=== PATIENT | female | born 1965 | race Caucasian/White ===

== ENCOUNTER 2018-09-21 16:43 | Outpatient (CLI) | payer BC ==
--- NOTE | 2018-09-21 16:57 | RAD ---
XR Chest Pa Lat STANDARD HISTORY: Cardiomyopathy COMPARISON: 08/30/2018 FINDINGS: The heart size is moderately enlarged. The aorta is tortuous. The lungs are well expanded w ithout lobar consolidation, pneumothoraces, arnold pulmonary edema or pleural effusions. IMPRESSION: No radiographic evidence of acute cardiopulmonary process.
[2018-09-21 17:12] LABS: #Basophils 0.1 thou/uL (0.0-0.2); #Eosinphils 0.5 thou/uL (0.0-0.7); #Monocytes 0.6 thou/uL (0.11-0.59); #Neutrophils 7.9 thou/uL (1.40-6.50); %Basophils 0.8 % (0.0-1.0); %Eosinophils 3.8 % (0.0-10.0); %Lymphocytes 24.9 % (21.0-51.0); %Monocytes 4.9 % (0.0-10.0); %Neutrophils 65.6 % (42.0-75.0); Hemoglobin 13.6 g/dL (12.0-16.0); Mean Corpuscular HGB CONC 32.3 g/dL (32.0-36.0); Mean Corpuscular Hemoglobin 28.3 pg (27.0-31.0); Mean Corpuscular Volume 87.7 fL (78.0-98.0); Mean Platelet Volume 6.5 fL (7.4-10.4); Platelet Count 436 thou/uL (130-400); RBC Distribution Width 14.3 % (11.5-14.5); Red Blood Cell (RBC) Count 4.79 mill/uL (4.20-5.40)
[2018-09-21 17:24] LABS: Anion Gap 17 mmol/L (10-20); BUN (Urea Nitrogen) 7 mg/dL (9.8-20.1); Calc. Creatinine Clearance 0 mL/min (70-130); Carbon Dioxide 23 mmol/L (22-29); Chloride 104 mmol/L (98-107); Estimated GFR-MDRD 87; Glucose 125 mg/dL (70-105); Sodium 139 mmol/L (136-145)
== END 2018-09-21 16:44 | disposition home or self-care (01) ==
LOC: MADLABBHPM 16:43
PROVIDERS: ATTEND Family Medicine
DX: I42.9 Cardiomyopathy, unspecified (principal)
CPT/HCPCS: 36415; 71046; 80048; 83880; 85025

== ENCOUNTER 2018-09-28 01:52 | Emergency (ER) | payer BC ==
[2018-09-28 02:51] LABS: #Basophils 0.1 thou/uL (0.0-0.2); #Eosinphils 0.2 thou/uL (0.0-0.7); #Lymphocytes 3.4 thou/uL (1.20-3.40); #Monocytes 0.8 thou/uL (0.11-0.59); #Neutrophils 9.2 thou/uL (1.40-6.50); %Eosinophils 1.5 % (0.0-10.0); %Lymphocytes 24.6 % (21.0-51.0); %Monocytes 5.8 % (0.0-10.0); %Neutrophils 67.1 % (42.0-75.0); Mean Corpuscular HGB CONC 32.7 g/dL (32.0-36.0); Mean Corpuscular Hemoglobin 28.3 pg (27.0-31.0); Mean Corpuscular Volume 86.6 fL (78.0-98.0); Mean Platelet Volume 6.9 fL (7.4-10.4); Platelet Count 395 thou/uL (130-400); RBC Distribution Width 14.5 % (11.5-14.5); Red Blood Cell (RBC) Count 4.95 mill/uL (4.20-5.40); White Blood Cell (WBC) Count 13.7 thou/uL (4.8-10.8)
[2018-09-28 03:02] LABS: ALT (SGPT) 12 U/L (8-55); AST (SGOT) 12 U/L (5-34); Albumin 3.8 g/dL (3.5-5.0); Alkaline Phosphatase 79 U/L (40-150); Anion Gap 17 mmol/L (10-20); BUN (Urea Nitrogen) 8 mg/dL (9.8-20.1); Bilirubin, Total 0.2 mg/dL (0.2-1.2); Calc. Creatinine Clearance 0 mL/min (70-130); Carbon Dioxide 21 mmol/L (22-29); Chloride 101 mmol/L (98-107); Estimated GFR-MDRD 88; Glucose 243 mg/dL (70-105); Potassium 4.5 mmol/L (3.5-5.1); Sodium 134 mmol/L (136-145)
[2018-09-28 03:05] LABS: CKMB 0.6 ng/mL (0-6.6); Calcium 9.1 mg/dL (7.8-10.44); Protein, Total 6.8 g/dL (6.0-8.3)
--- NOTE | 2018-09-28 06:23 | CT ---
CTA THORAX WITH IV CONTRAST AND 3D REFORMATTED IMAGING AND PE PROTOCOL: HISTORY: A 52-year-old female with reported malaise, not feeling well, and a high elevated D-dimer. The physi sal is concerned for possible PE. COMPARISON: None. FINDINGS: Respiratory motion artifact slightly limits image detail of the lung bases of the segmental pulmonary vasculature. No definite central or segmental pulmonary embolus is grossly evident within the limitations of the e xam. There are slightly prominent lymph nodes seen within the hilar regions on the right, Within the infr ahilar region, there is a 1.5 cm lymph node. Within the left hilum, there is a 1.1 cm lymph node. T here are a few shotty appearing prevascular lymph nodes, measuring up to 7 mm. There are calcificati ons involving the thoracic aorta and coronary arteries. There are areas of subsegmental volume loss involving both lungs. There are hazy ground glass opacit ies seen within both lungs, which may be related to subsegmental volume loss or a mild pneumonitis. The visualized upper abdomen demonstrates fatty infiltration of the liver. The remaining visualized segments of the upper abdomen are unremarkable appearing. There is scattered degenerative and osteoarthritic change. No definite acute osseous abnormality is evident. IMPRESSION: 1. No central or segmental pulmonary embolus. 2. Hazy ground glass opacity seen throughout both lungs can be related to peripheral airways disease and subsegmental volume loss. This can also be seen with a mild pneumonitis. This can be related t o an atypical infectious process such as viral pneumonia. 3. Mild prominence of the hilar lymph nodes. As a conservative measure, follow-up CT examination in six to eight weeks may be helpful to document resolution of the above findings. POS: [facility]
--- NOTE | 2018-09-28 08:15 | RAD ---
CHEST ONE VIEW: HISTORY: Dizziness. Lightheadedness. COMPARISON: Radiograph from 09/21/2018. FINDINGS: The lungs are clear. No pneumothorax. No effusion. The cardiac silhouette and mediastinal contour are within normal limits. IMPRESSION: No acute intrathoracic abnormality. POS: CET
[2018-09-28] MEDS ORDERED: Iopamidol 370 76% 125 ML VIAL FS ONE (09:40)
== END 2018-09-28 06:53 | disposition short-term general hospital (02) ==
LOC: MADERS 01:52
DX: R00.2 Palpitations (principal); R55 Syncope and collapse; J45.909 Unspecified asthma, uncomplicated
CPT/HCPCS: 71045; 71275; 80053; 82553; 83880; 84484; 85025; 85379; 93005; Q9967

== ENCOUNTER 2018-10-05 01:14 | Emergency (ER) | payer BC ==
[2018-10-05 03:28] LABS: #Basophils 0.1 thou/uL (0.0-0.2); #Eosinphils 0.2 thou/uL (0.0-0.7); #Lymphocytes 3.6 thou/uL (1.20-3.40); #Monocytes 0.8 thou/uL (0.11-0.59); #Neutrophils 9.8 thou/uL (1.40-6.50); %Basophils 0.6 % (0.0-1.0); %Eosinophils 1.3 % (0.0-10.0); %Lymphocytes 24.9 % (21.0-51.0); %Monocytes 5.5 % (0.0-10.0); %Neutrophils 67.7 % (42.0-75.0); Hemoglobin 13.4 g/dL (12.0-16.0); Mean Corpuscular HGB CONC 33.3 g/dL (32.0-36.0); Mean Platelet Volume 7.7 fL (7.4-10.4); Platelet Count 313 thou/uL (130-400); RBC Distribution Width 14.5 % (11.5-14.5); Red Blood Cell (RBC) Count 4.63 mill/uL (4.20-5.40); White Blood Cell (WBC) Count 14.4 thou/uL (4.8-10.8)
[2018-10-05 03:47] LABS: ALT (SGPT) 21 U/L (8-55); AST (SGOT) 13 U/L (5-34); Alkaline Phosphatase 72 U/L (40-150); Anion Gap 16 mmol/L (10-20); BUN (Urea Nitrogen) 6 mg/dL (9.8-20.1); Bilirubin, Total 0.3 mg/dL (0.2-1.2); CK (CPK) 26 U/L (29-168); Calc. Creatinine Clearance 0 mL/min (70-130); Calcium 9.6 mg/dL (7.8-10.44); Carbon Dioxide 24 mmol/L (22-29); Chloride 104 mmol/L (98-107); Estimated GFR-MDRD Greater than 90; Globulin 3.4 g/dL (2.4-3.5); Glucose 109 mg/dL (70-105); Lipase 39 U/L (8-78); Potassium 3.5 mmol/L (3.5-5.1); Protein, Total 7.4 g/dL (6.0-8.3); Sodium 140 mmol/L (136-145)
[2018-10-05] MEDS ORDERED: Lorazepam 2 MG/ML VIAL ONE (03:49)
[2018-10-05] MEDS ORDERED: Ketorolac Tromethamine 30 MG/ML VIAL ONE (03:50)
[2018-10-05] MEDS ORDERED: Ondansetron ODT 4 MG TAB ONE ×2 (03:50→15:31)
--- NOTE | 2018-10-05 08:08 | RAD ---
RADIOGRAPH CHEST 1 VIEW: DATE: 10/05/2018 HISTORY: 52-year-old female with right-sided chest pain FINDINGS: There is no airspace density, pulmonary edema, or pneumothorax. The lateral costophrenic angles are n ot effaced. IMPRESSION: No acute pulmonary findings.
--- NOTE | 2018-10-05 08:14 | CT ---
PRELIMINARY REPORT/[facility]/AFTER HOURS PROCEDURE EXAM: CT Abdomen and Pelvis Without Contrast EXAM DATE/TIME: 10/05/2018 2:49 AM CLINICAL HISTORY: 52 years old, female; Abdominal pain; Localized; Right; Patient HX: Pain to RT side of abdomen TECHNIQUE: Imaging protocol: Computed tomography images of the abdomen and pelvis without contrast. Radiation optimization: All CT scans at this facility use at least one of these dose optimization techniques: automated exposure control; mA and/or kV adjustment per patient size (includes targeted exams where dose is matched to clinical indication); or iterative reconstruction. COMPARISON: No relevant prior studies available. FINDINGS: Liver: Mild hepatomegaly. Gallbladder and bile ducts: Normal Pancreas: Normal. Spleen: Normal. Adrenals: Normal. Kidneys and ureters: Normal. Stomach and bowel: Normal. Appendix: Appendix normal. Intraperitoneal space: Normal. No free air. No significant fluid collection. Vasculature: Atherosclerotic calcification of the visualized right and left circumflex coronary arter ies. Atherosclerotic disease of the visualized distal thoracic aorta. Atherosclerotic disease of the abdominal aorta and iliac arteries. Lymph nodes: Normal. No enlarged lymph nodes. Bladder: Unremarkable as visualized. Reproductive: Uterus is surgically absent. Bones/joints: No acute abnormality. Soft tissues: Normal. IMPRESSION: No acute abdominal or pelvic abnormality. Thank you for allowing us to participate in the care of your patient. Dictated and Authenticated by: Waldemar Torres MD 10/05/2018 3:26 AM Central Time ([place] & [place]) FINAL REPORT EMERGENCY AFTER HOURS STUDY CT ABDOMEN NONCONTRAST CT PELVIS NONCONTRAST: (Urolithiasis protocol) DATE: 10/05/2018 HISTORY: A 52-year-old female with right-sided abdominal pain. TECHNIQUE: IV injection of iodinated contrast media: None. Oral contrast media: None. FINDINGS: Other than for urolithiasis, the lack of IV and oral contrast limits the evaluation. Liver: No contour abnormalities. Spleen: No splenomegaly. Pancreas: No contour abnormalities. Adrenals: No mass. Kidneys: No nephrolithiasis or overt hydronephrosis. Ureters: No calculi. Bladder: No calculi. Abdominal aorta: No aneurysm. Small bowel: No dilation. Colon: No adjacent fat stranding. Appendix: No dilation or adjacent fat stranding. Free air: None. Free fluid: None. IMPRESSION: No acute findings. Agree with preliminary report by [facility]. CODE QA Transcribed Date/Time: 10/05/2018 10:03 AM
[2018-10-05] MEDS ORDERED: Ketorolac Tromethamine 60 MG/2 ML VIAL ONE (15:31)
== END 2018-10-05 04:20 | disposition home or self-care (01) ==
LOC: MADERS 01:14
DX: R23.2 Flushing (principal); R10.13 Epigastric pain; R51 Headache; E11.9 Type 2 diabetes mellitus without complications; I10 Essential (primary) hypertension; Z79.899 Other long term (current) drug therapy
CPT/HCPCS: 36415; 71045; 74176; 80053; 82550; 83605; 83690; 84443; 84484; 85025; 93005; 96374; 96375; J1885; J2060; Q0162

== ENCOUNTER 2018-10-08 20:59 | Emergency (ER) | payer BC ==
[2018-10-08] MEDS ORDERED: Metoprolol Tartrate 5 MG/5 ML VIAL ONE (22:09)
[2018-10-08 22:18] LABS: Hemoglobin 12.8 g/dL (12.0-16.0); Mean Corpuscular HGB CONC 33.4 g/dL (32.0-36.0); Mean Corpuscular Hemoglobin 28.8 pg (27.0-31.0); Mean Corpuscular Volume 86.5 fL (78.0-98.0); Mean Platelet Volume 8.3 fL (7.4-10.4); Platelet Count 340 thou/uL (130-400); RBC Distribution Width 14.9 % (11.5-14.5); Red Blood Cell (RBC) Count 4.44 mill/uL (4.20-5.40); White Blood Cell (WBC) Count 12.4 thou/uL (4.8-10.8)
[2018-10-08] MEDS ORDERED: Metoprolol Tartrate 50 MG TAB ONE (22:26)
[2018-10-08 22:32] LABS: ALT (SGPT) 24 U/L (8-55); AST (SGOT) 17 U/L (5-34); Albumin 3.7 g/dL (3.5-5.0); Alkaline Phosphatase 71 U/L (40-150); Anion Gap 17 mmol/L (10-20); BUN (Urea Nitrogen) 7 mg/dL (9.8-20.1); Bilirubin, Total 0.2 mg/dL (0.2-1.2); Calc. Creatinine Clearance 0 mL/min (70-130); Calcium 8.9 mg/dL (7.8-10.44); Carbon Dioxide 22 mmol/L (22-29); Chloride 106 mmol/L (98-107); Estimated GFR-MDRD 87; Globulin 2.6 g/dL (2.4-3.5); Glucose 141 mg/dL (70-105); Magnesium 1.6 mg/dL (1.6-2.6); Potassium 3.9 mmol/L (3.5-5.1); Protein, Total 6.3 g/dL (6.0-8.3); Sodium 141 mmol/L (136-145)
[2018-10-08 22:54] LABS: Band 1 % (5-11); Lymphocytes 29 % (21-51); MDiff Complete? YES; Monocytes 4 % (0-10); Neutrophil 66 % (42-75); Platelet Morphology Comment Appears Adequate; RBC Morphology Normal
== END 2018-10-08 23:03 | disposition home or self-care (01) ==
LOC: MADERS 20:59
DX: R00.0 Tachycardia, unspecified (principal); E11.65 Type 2 diabetes mellitus with hyperglycemia; I11.0 Hypertensive heart disease with heart failure; I50.9 Heart failure, unspecified; I25.2 Old myocardial infarction; J44.9 Chronic obstructive pulmonary disease, unspecified; F17.210 Nicotine dependence, cigarettes, uncomplicated; Z79.01 Long term (current) use of anticoagulants; Z79.51 Long term (current) use of inhaled steroids; Z79.84 Long term (current) use of oral hypoglycemic drugs
CPT/HCPCS: 80053; 83735; 84443; 85025; 93005; 96374

== ENCOUNTER 2018-11-23 20:54 | Emergency (ER) | payer BC ==
[2018-11-23] MEDS ORDERED: Lorazepam 1 MG TAB ONE (22:02)
[2018-11-23] MEDS ORDERED: Metoprolol Tartrate 50 MG TAB ONE (22:02)
[2018-11-23] MEDS ORDERED: Azithromycin 250 MG TAB ONE (22:47)
== END 2018-11-23 23:07 | disposition home or self-care (01) ==
LOC: MADERS 20:54
DX: J18.9 Pneumonia, unspecified organism (principal); F41.1 Generalized anxiety disorder; I11.0 Hypertensive heart disease with heart failure; I50.9 Heart failure, unspecified; I25.2 Old myocardial infarction; E11.9 Type 2 diabetes mellitus without complications; J44.9 Chronic obstructive pulmonary disease, unspecified; F17.210 Nicotine dependence, cigarettes, uncomplicated; Z79.899 Other long term (current) drug therapy; Z79.01 Long term (current) use of anticoagulants; Z79.84 Long term (current) use of oral hypoglycemic drugs
CPT/HCPCS: 87804; 99284

== ENCOUNTER 2019-01-18 11:10 | Outpatient (CLI) | payer BC ==
[2019-01-18 18:08] LABS: ALT (SGPT) 16 U/L (8-55); AST (SGOT) 14 U/L (5-34); Albumin 3.9 g/dL (3.5-5.0); Alkaline Phosphatase 74 U/L (40-110); Anion Gap 14 mmol/L (10-20); BUN (Urea Nitrogen) 7 mg/dL (9.8-20.1); Bilirubin, Direct 0.1 mg/dL (0.1-0.3); Bilirubin, Total 0.3 mg/dL (0.2-1.2); Calc. Creatinine Clearance 0 mL/min (70-130); Calcium 8.9 mg/dL (7.8-10.44); Carbon Dioxide 23 mmol/L (22-29); Cardiac Risk 3.2 (Less than 4.5); Chloride 104 mmol/L (98-107); Cholesterol 126 mg/dl (< 200 Desired); Estimated GFR-MDRD 78; Glucose 134 mg/dL (70-105); HDL Cholesterol 39 mg/dL (>60 Neg Risk); LDL Cholesterol, Calculated 59 mg/dL; Potassium 4.3 mmol/L (3.5-5.1); Protein, Total 6.8 g/dL (6.0-8.3); Sodium 137 mmol/L (136-145); Triglycerides 140 mg/dL (Less than 150)
[2019-01-18 22:01] LABS: Hemoglobin A1c 6.8 % (4.0-6.0)
== END 2019-01-18 11:11 | disposition home or self-care (01) ==
LOC: MADLABBHPM 11:10
PROVIDERS: ATTEND Family Medicine
DX: E11.9 Type 2 diabetes mellitus without complications (principal); E78.5 Hyperlipidemia, unspecified
CPT/HCPCS: 36415; 80048; 80061; 80076; 83036

== ENCOUNTER 2019-02-25 22:03 | Emergency (ER) | payer BC ==
[2019-02-25] MEDS ORDERED: Ciprofloxacin 500 MG TAB ONE (22:45)
[2019-02-25] MEDS ORDERED: Neomycin/Polymyxin/HC Otic Solution 10 ML BOT ONE ×2 (22:45→22:49)
[2019-02-25] MEDS ORDERED: HYDROcodone/Acetaminophen 10/325 mg Tablet ONE (22:47)
== END 2019-02-25 23:14 | disposition home or self-care (01) ==
LOC: MADERS 22:03
DX: H60.21 Malignant otitis externa, right ear (principal); R00.0 Tachycardia, unspecified; I11.0 Hypertensive heart disease with heart failure; I50.9 Heart failure, unspecified; I25.2 Old myocardial infarction; E11.9 Type 2 diabetes mellitus without complications; J44.9 Chronic obstructive pulmonary disease, unspecified; J96.90 Respiratory failure, unspecified, unspecified whether with hypoxia or hypercapnia; F17.210 Nicotine dependence, cigarettes, uncomplicated; Z79.899 Other long term (current) drug therapy; Z79.01 Long term (current) use of anticoagulants; Z79.4 Long term (current) use of insulin
CPT/HCPCS: 99283

== ENCOUNTER 2019-03-01 23:51 | Emergency (ER) | payer BC ==
[2019-03-02] MEDS ORDERED: Amoxicillin/Potassium Clav 500 MG TAB ONE (00:15)
[2019-03-02] MEDS ORDERED: Ketorolac Tromethamine 30 MG/ML VIAL ONE (00:15)
== END 2019-03-02 00:38 | disposition home or self-care (01) ==
LOC: MADERS 23:51
DX: H65.93 Unspecified nonsuppurative otitis media, bilateral (principal); I25.2 Old myocardial infarction; J44.9 Chronic obstructive pulmonary disease, unspecified; E11.9 Type 2 diabetes mellitus without complications; I11.0 Hypertensive heart disease with heart failure; I50.9 Heart failure, unspecified; F17.210 Nicotine dependence, cigarettes, uncomplicated
CPT/HCPCS: 96372; 99282; J1885

== ENCOUNTER 2019-04-21 14:38 | Outpatient (CLI) | payer BC ==
--- NOTE | 2019-04-21 15:43 | RAD ---
TWO VIEWS OF THE CHEST: 04/21/19 COMPARISON: 09/21/18 HISTORY: Acute bronchitis. FINDINGS: Two views of the chest shows normal sized cardiomediastinal silhouette without atherosclerotic calcif ications in the aorta. There is no evidence of consolidation, mass, or pleural effusion. The bones a re unremarkable. IMPRESSION: 1. No evidence of acute cardiopulmonary disease. 2. Atherosclerotic disease. POS: [facility]
== END 2019-04-21 14:39 | disposition home or self-care (01) ==
LOC: MADRAD 14:38
PROVIDERS: ATTEND Family Medicine
DX: J20.8 Acute bronchitis due to other specified organisms (principal); I70.90 Unspecified atherosclerosis
CPT/HCPCS: 71046